=== PATIENT | male | born 1965 | race Caucasian/White ===

== ENCOUNTER 2019-07-15 07:32 | Emergency (ER) | payer OTHER, SELFPAY ==
[2019-07-15 07:33] VITALS: BP 135/111; PULSE 87; RESP 16; TEMP 36.4; O2SAT 93; BMI 28.2
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
[2019-07-15 07:39] VITALS: O2SAT 92
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
[2019-07-15] MEDS: 0.9% Normal Saline 1,000 ML 1000 ML IV (07:50)
[2019-07-15] MEDS: Ondansetron 4 MG/2 ML Vial IV (07:53)
[2019-07-15] MEDS: fentaNYL 100 MCG/2 ML Ampul 50 MCG IV ×2 (07:53→08:28)
[2019-07-15 07:55] VITALS: BP 108/75; PULSE 73; RESP 16; O2SAT 96
[2019-07-15 08:04] LABS: Absolute Lymphocyte Count 1.62 X10^3/uL (0.83-4.51); Absolute Neutrophil Count 7.5 X10^3/uL (2.0-7.7); Basophil# 0.04 X10^3/uL; Basophil% 0.4 % (0-1); Eosinophil# 0.05 X10^3/uL; Eosinophils% 0.5 % (0-5); Hematocrit 40.1 % (40-54); Hemoglobin 13.3 g/dL (13.0-16.5); Lymphocyte # 1.62 X10^3/ul (4.0); Lymphocyte % 16.6 % (19-41); Mean Corp Hgb Conc 33.2 g/dL (32-36); Mean Corpuscular Volume 93.5 fL (80-94); Monocyte# 0.44 X10^3/uL; Monocyte% 4.5 % (0-10); NRBC Flagged by Analyzer 0 % (0-5); Neutrophil # 7.52 X10^3/uL (2.7-7.7); Neutrophil % 77.4 % (47-70); Platelet Count 280 K/mm3 (150-450); RBC Distribution Width CV 14.8 % (11.6-14.6); RBC Distribution Width SD 50.9 fl (35.1-43.9); Red Blood Count 4.29 M/mm3 (4.6-6.2); White Blood Count 9.7 K/mm3 (4.4-11.0)
--- NOTE | 2019-07-15 08:11 | NURSING ---
0802 CALLED [facility] FOR TRANSFER. TALKED TO JOVANI FAXED [facility] 0839 ETA IS 15 MIN
--- NOTE | 2019-07-15 08:12 | NURSING ---
0808 CALLED [facility] TRANSFER [facility]. DR CHAMBERLAIN SPOKE TO HER
[2019-07-15 08:15] LABS: Anion Gap 4 (5-15); BUN 15 mg/dL (7-18); BUN/Creat Ratio 15.1 RATIO (10-20); Calcium,Total 8.4 mg/dL (8.5-10.1); Chloride 108 mmol/L (98-107); Creatinine, Serum 0.99 mg/dL (0.70-1.30); EST Glomerular Filtration Rate 84 mL/min (>60); Est Glom Filt Rate - Afr Amer 102 mL/min (>60); Estimated Creatinine Clearance 96.89 ml/min; Glucose 199 mg/dL (74-106); Potassium 4.1 mmol/L (3.5-5.1); Sodium Level 139 mmol/L (136-145)
--- NOTE | 2019-07-15 08:19 | ED.RN ---
Spoke with Anthony at [facility] [phone]. Pt will require a non D.O.T. drug screen at first appropriate opportunity.
[2019-07-15 08:25] VITALS: BP 106/78; PULSE 77; RESP 17; O2SAT 97
[2019-07-15 08:25] LABS: International Normalized Ratio 1.1; Prothrombin Time (Protime)PT. 14.3 SECONDS (11.7-14.9)
--- NOTE | 2019-07-15 08:25 | ED.RN ---
[facility] PRESENT AND ASSUMING CARE WITH ASSIST FROM ED STAFF.
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
== END 2019-07-15 08:41 | disposition short-term general hospital (02) ==
PROVIDERS: Emergency Provider Emergency Medicine
DX: S43.015A Anterior dislocation of left humerus, initial encounter (principal); S30.1XXA Contusion of abdominal wall, initial encounter; S83.104A Unspecified dislocation of right knee, initial encounter; V03.10XA Pedestrian on foot injured in collision with car, pick-up truck or van in traffic accident, initial encounter; K50.90 Crohn's disease, unspecified, without complications; Z72.0 Tobacco use
CPT/HCPCS: 70450; 71045; 71260; 72125; 73030; 73560; 74177; 80048; 85025; 85610; 96361; 96374; 96375; 99284; J7030; P9016; Q9967; A4216; J2405